=== PATIENT | female | born 1985 | race Caucasian/White ===

== ENCOUNTER → 2016-11-16 | Outpatient (CLI) | payer OTHER ==
[~2016-11-16] MED LIST: CALCTAB5 PO; CYAN10004 INJ; CYAN3INJ IM; DROS1TAB2 PO; DROS1TAB24 PO; ERGO1CAP41 PO; MULT-506 PO; OMEP20TA PO; PRLSR20 PO; TRAM-10 PO
[2016-11-16 16:39] LABS: BASO % 0.6 %; BASO ABS # 0.03 K/uL (0-0.2); COMPLETE YES; EOS % 1.9 %; HEMATOCRIT 35.5 % (37-47); IG% 0.2 %; LYMPH % 38.2 %; LYMPH ABS # 1.77 K/uL (1.2-3.4); MEAN CELL VOLUME 88.3 fL (80-100); MEAN CORPUSCULAR HEMOGLOBIN 30.1 pg (25-34); MEAN CORPUSCULAR HGB CONC 34.1 g/dl (32-36); MEAN PLATELET VOLUME 10.3 fL (7.4-10.4); NEUT % 53.1 %; PLATELET COUNT 313 K/uL (130-400); RED BLOOD COUNT 4.02 M/uL (4.2-5.4); WHITE BLOOD COUNT 4.63 K/uL (4.8-10.8)
[2016-11-16 17:42] LABS: BLOOD UREA NITROGEN 13 mg/dl (7-18); BUN/CREATININE RATIO 14.8 (10-20); CALCIUM 8.6 mg/dl (8.5-10.1); CARBON DIOXIDE 24 mmol/L (21-32); CHLORIDE 105 mmol/L (98-107); CREATININE 0.86 mg/dl (0.60-1.20); GLUCOSE 96 mg/dl (70-99); POTASSIUM 3.7 mmol/L (3.5-5.1); SODIUM 139 mmol/L (136-145)
[2016-11-16 17:45] LABS: FERRITIN 20.4 ng/ml (8.0-388.0)
== END | disposition home or self-care (01) ==
LOC: C.LAB 15:51
PROVIDERS: ATTEND Internal Medicine
DX: R79.0 Abnormal level of blood mineral (principal); E53.8 Deficiency of other specified B group vitamins; E55.9 Vitamin D deficiency, unspecified; K90.0 Celiac disease

== ENCOUNTER 2017-02-18 11:00 | Emergency (ER) | payer OTHER ==
[~2017-02-18] VITALS: Ht 165.1 cm; Wt 84.2 kg
[~2017-02-18 11:00] MED LIST changes: -CYAN10004 INJ; -DROS1TAB2 PO; -ERGO1CAP41 PO; -OMEP20TA PO; -TRAM-10 PO
[2017-02-18 11:03] VITALS: TEMP 37.7; Ht 165.1 cm; Wt 84.2 kg
[2017-02-18] MEDS ORDERED: CYAN10004 INJ (11:38)
[2017-02-18] MEDS ORDERED: ERGO500011 PO (11:38)
[2017-02-18] MEDS ORDERED: OMEP20TA PO (11:38)
[2017-02-18] MEDS ORDERED: DROS1TAB2 PO (11:38)
--- NOTE | 2017-02-18 12:14 | DIAGNOSTIC IMAGING REPORT ---
ULTRASOUND LEFT LOWER EXTREMITY VENOUS CLINICAL HISTORY: Left leg pain. COMPARISON STUDY: Bilateral lower extremity venous ultrasound dated 05/24/2011. TECHNIQUE: Real-time, grayscale, and color Doppler sonography of the deep veins of the left lower extremity was performed from the inguinal crease to the calf. Compression and augmentation were utilized. FINDINGS: There is no sonographic evidence of deep venous thrombosis identified in the left lower extremity. The common femoral, superficial femoral, and popliteal veins are patent and normally compressible. The greater saphenous vein and the profunda femoris vein at the junction with the common femoral vein are clear. The visualized calf veins are patent. IMPRESSION: There is no sonographic evidence of deep venous thrombosis identified in the left lower extremity. Electronically signed by: Joao Shine M.D. 02/18/2017 12:12 PM Dictated Date/Time: 02/18/2017 12:12 PM
--- NOTE | 2017-02-18 12:25 | DIAGNOSTIC IMAGING REPORT ---
LEFT KNEE 3 VIEWS CLINICAL HISTORY: Left knee pain. FINDINGS: AP, crosstable lateral, and sunrise views of left knee are obtained. No prior studies are available for comparison at the time of dictation. The skeletal structures are well mineralized. No fracture is seen. The joint spaces of the knee are preserved. There is no joint effusion. The overlying soft tissues are within normal limits. IMPRESSION: Unremarkable radiographic assessment of the left knee. Electronically signed by: Joao Shine M.D. 02/18/2017 12:24 PM Dictated Date/Time: 02/18/2017 12:23 PM
--- NOTE | 2017-02-18 12:40 | EMERGENCY ROOM VISIT NOTE ---
History First contact with patient: 11:11 Chief Complaint: LEG PAIN,LEG INJURY Stated Complaint: LEFT LEG-POSSIBLE BLOOD CLOT-SENT BY DR. LORENZ History of Present Illness The patient is a 31 year old female who presents to the Emergency Room via private vehicle with complaints of "leg pain possible blood clot, sent by Dr. Lorenz". The patient states that yesterday morning she woke up, and stepped out of bed and felt that her left leg felt weird, particularly at the left knee and left calf region. She feels as though the left knee has a brace on it. She states that she has kept it elevated and is taken ibuprofen with minimal relief. She also took Aleve before bedtime, which helped her pain. This morning she went to see her family doctor, who referred her here for an ultrasound secondary to concern of potential DVT. Patient denies any chance of , recent trauma, injury, falls. Patient denies any fevers, chills, chest pain, shortness of breath today. Review of Systems A complete 10-point Review of Systems was discussed with the patient, with pertinent positives and negatives listed in the History of Present Illness. All remaining Review of Systems questions can be considered negative unless otherwise specified. Past Medical/Surgical History Medical Problems: (1) Celiac Disease (2) Diaphragmatic Hernia (3) Reflux Esophagitis (4) Tricuspid Valve Disease Surgical Problems: (1) History of cholecystectomy Family History Diabetes, heart disease, high blood pressure, cancer, gallbladder disease, kidney disease or stones Social History Smoking Status: Never Smoker Alcohol Use: none Drug Use: none Marital Status: Occupation Status: employed Social History: Patient is currently employed and lives at home with and son Current/Historical Medications Scheduled Cyanocobalamin (Vitamin B-12 1000 Mcg), 1,000 MCG INJ MONTHLY Drospirenone-Ethinyl Estradiol (Loryna), 1 TAB PO DAILY Ergocalciferol (Vitamin D 06061 Unit), 1 TAB PO WK Multivitamin (Multivitamin), 1 TAB PO DAILY Omeprazole (Omeprazole), 1 TAB PO DAILY Allergies Coded Allergies: Gluten (Verified Adverse Reaction, Unknown, CELIAC DISEASE, 02/18/17) Physical Exam Vital Signs Date Time Temp Pulse Resp B/P Pulse Ox O2 Delivery O2 Flow Rate FiO2 02/18/17 12:44 60 18 143/87 99 Room Air 02/18/17 11:03 37.7 87 16 150/89 99 Room Air Physical Exam VITAL SIGNS - Vital signs and nursing notes were reviewed. Patient is afebrile , hypertensive at 150/89, non-tachycardic and is saturating well on room air 99% . GENERAL -31-year-old female appearing her stated age who is in no acute distress. Communicates well with provider and answers questions appropriately. SKIN - Without rashes. Skin overlying the left lower extremity is unremarkable. EXTREMITIES - No clubbing or peripheral cyanosis. No pretibial edema present. She is neurovascularly intact in the left lower extremity. Positive Homans sign. There is tenderness to palpation overlying the posterior superior aspect of the left calf and knee joint diffusely. Decreased range of motion secondary to pain in the knee. +5/5 strength noted in UE/LE bilaterally. Medical Decision & Procedures ER Provider Diagnostic Interpretation: LEFT KNEE 3 VIEWS CLINICAL HISTORY: Left knee pain. FINDINGS: AP, crosstable lateral, and sunrise views of left knee are obtained. No prior studies are available for comparison at the time of dictation. The skeletal structures are well mineralized. No fracture is seen. The joint spaces of the knee are preserved. There is no joint effusion. The overlying soft tissues are within normal limits. IMPRESSION: Unremarkable radiographic assessment of the left knee. Electronically signed by: Joao Shine M.D. 02/18/2017 12:24 PM Dictated Date/Time: 02/18/2017 12:23 PM ULTRASOUND LEFT LOWER EXTREMITY VENOUS CLINICAL HISTORY: Left leg pain. COMPARISON STUDY: Bilateral lower extremity venous ultrasound dated 05/24/2011. TECHNIQUE: Real-time, grayscale, and color Doppler sonography of the deep veins of the left lower extremity was performed from the inguinal crease to the calf. Compression and augmentation were utilized. FINDINGS: There is no sonographic evidence of deep venous thrombosis identified in the left lower extremity. The common femoral, superficial femoral, and popliteal veins are patent and normally compressible. The greater saphenous vein and the profunda femoris vein at the junction with the common femoral vein are clear. The visualized calf veins are patent. IMPRESSION: There is no sonographic evidence of deep venous thrombosis identified in the left lower extremity. Electronically signed by: Joao Shine M.D. 02/18/2017 12:12 PM Dictated Date/Time: 02/18/2017 12:12 PM Medical Decision Patient was seen and evaluated as above. After obtaining a thorough history and physical examination ultrasound was obtained, as well as radiograph of the affected extremity. The leg does not show any sign of infection, or superficial thrombophlebitis. Radiograph ultrasound results as above. No fracture or knee effusion seen. No evidence of septic joint. Clinically no evidence of emergent process. Ultrasound reveals no DVT. I suspect the patient may be experiencing either an soft tissue injury of the knee, or potentially an early process within the. We did discuss labs versus watch and wait, and it was decided to carefully watch the knee over time to resolution or return for worsening. I do believe this is reasonable. She notes that she has a knee brace at home and respectfully declined crutches. She is to follow-up regarding today's visit. She was educated upon worrisome symptoms which to return, had questions or discharge, and was discharged home in good condition. In the evaluation and treatment of this patient, the following differential diagnoses were considered: Patellar Fracture, Tibial Plateau Fracture, Distal Femur Fracture, ACL Injury, PCL Injury, Collateral Ligament Injury, Pes Anserine Bursitis, Maisonneuve Fracture. Impression Primary Impression: Leg pain, left Departure Information Dispostion Home / Self-Care Condition GOOD Referrals Pro,Cricket Marrero M.D. (PCP) Donald Mcnair M.D. Patient Instructions My [facility] Additional Instructions You have been treated in the Emergency Department for Knee Pain. For pain control, you can use the following juil-nno-reyzvxx medicines (if >12 yo): - Regular strength (325mg/tab) Tylenol (acetaminophen) 2 tabs every 4-6 hours as needed. Do not exceed 12 tablets in a 24 hour period. Avoid taking more than 3 grams (3000 mg) of Tylenol per day. This includes any other sources of acetaminophen you may take on a regular basis. - Regular strength (200 mg/tab) Advil (ibuprofen) 1-2 tabs every 4-6 hours as needed. Do not exceed a dose of 3200 mg per day. If this is a recent injury (<24 hrs), ice can be applied to the area of pain for the first 3 days to help decrease pain and inflammation. Ice massages can be performed by freezing water in a paper cup, peeling back the cup to expose the ice and then massaging over the affected area. You have been provided the number for an Orthopaedic Surgeon. You should call this number as soon as possible to establish a follow-up visit from today's Emergency Department visit. It is also recommended to follow-up with your family doctor. As we discussed there is no evidence of infection at this time, however if he would develop redness, increased warmth or swelling of the knee please return immediately. Keep the knee brace in place until cleared by Orthopedics. Please limit weightbearing of the knee. Return to the Emergency Department if your current symptoms worsen despite treatment course outlined above. Please return to the emergency department with any new/concerning symptoms.
[2017-02-18 12:44] VITALS: BP 143/87; PULSE 60; O2SAT 99
[2017-07-13] MEDS ORDERED: FAMO20TA12 PO (11:10)
[2017-07-13] MEDS ORDERED: BCPILLS PO (11:10)
[2017-07-13] MEDS ORDERED: ASPI-390 PO (11:10)
[2017-07-14] MEDS ORDERED: ONDA4TAB46 PO (10:15)
== END 2017-02-18 12:48 | disposition home or self-care (01) ==
LOC: C.EDB 11:03 → C.EDD 12:48
DX: M79.605 Pain in left leg (principal); K90.0 Celiac disease; K21.9 Gastro-esophageal reflux disease without esophagitis; Z79.899 Other long term (current) drug therapy; Z87.19 Personal history of other diseases of the digestive system; Z82.49 Family history of ischemic heart disease and other diseases of the circulatory system; Z83.79 Family history of other diseases of the digestive system; Z84.1 Family history of disorders of kidney and ureter

== ENCOUNTER → 2017-04-07 | Outpatient (CLI) | payer OTHER ==
[~2017-04-07] MED LIST changes: -CALCTAB5 PO; +CYAN10004 INJ; -CYAN3INJ IM; +DROS1TAB2 PO; -DROS1TAB24 PO; +ERGO1CAP41 PO; +OMEP20TA PO; -PRLSR20 PO
== END | disposition home or self-care (01) ==
LOC: C.LAB 15:18
PROVIDERS: ATTEND Internal Medicine
DX: E55.9 Vitamin D deficiency, unspecified (principal); E53.8 Deficiency of other specified B group vitamins

== ENCOUNTER 2017-06-20 08:45 | Emergency (ER) | payer OTHER ==
[~2017-06-20] VITALS: Ht 165.1 cm; Wt 84.5 kg
[2017-06-20 08:54] VITALS: TEMP 37.3; Ht 165.1 cm; Wt 84.5 kg
--- NOTE | 2017-06-20 08:58 | EMERGENCY ROOM VISIT NOTE ---
ED Visit Note First contact with patient: 08:48 CHIEF COMPLAINT: Finger injury HISTORY OF PRESENT ILLNESS: This 31-year-old female patient presents to the emergency department ambulatory after injuring the left second finger when she closed it in the sliding glass door at home just prior to arrival. There was no audible snap or crack at that time. She states the finger is numb distal to the injury. The patient is not able to straighten or flex the finger well and it is painful. No numbness or tingling. There are 2 superficial lacerations one to the dorsal aspect and one to the lateral aspect of the finger. They do not gape significantly. There is no significant bleeding. No other injuries. The patient has not had previous injury to this finger. The patient has taken nothing for the pain. REVIEW OF SYSTEMS: A 6 system review of systems was completed with positives and pertinent negatives in the HPI. ALLERGIES: Gluten MEDICATIONS: control pills, Prilosec PMH: GERD, celiac disease SOCIAL HISTORY: The patient lives locally. She is employed. PHYSICAL EXAM: Vital Signs: Reviewed Nurse's notes, vital signs stable. GENERAL : This is 31-year-old female, in no acute distress, but appears to be in pain, well-developed, well-nourished. MUSCULOSKELETAL: There is no deformity of the left second finger. The patient is not able to extend or flex it well because of the pain. The DIP joint is maximally tender and extension and flexion is painful. The PIP joint is nontender. There is no ligamentous instability. There are 2 small lacerations one to the dorsal aspect onto the lateral aspect. They do not significantly gape. There is no significant bleeding.. Capillary refill less than 2 seconds. No tenderness of the remaining fingers or hand. Full range of motion of the wrist. NEURO: Alert and oriented to person, place, and time. Normal sensation to light and sharp touch. EMERGENCY DEPARTMENT COURSE: I examined the patient. An x-ray of the finger was reviewed by myself and radiology and showed no fracture, foreign body or dislocation. 2 very small, superficial, flap-like lacerations that measured approximately 1 cm in total length were repaired. Using sterile technique the wound was cleaned with Betadine. The area was sterilely draped. 6 ml of 1% buffered lidocaine was used to anesthetize the finger the a digital block. Once the patient was numb, the wound was copiously irrigated under pressure with sterile saline. The wound was explored and there were no deep structures such as tendons, bone, or ligaments present. The laceration was repaired using 6 simple interrupted 5-0 nylon sutures with the wound edges being well approximated. The patient tolerated the procedure well. The bleeding stopped. The area was cleaned with sterile saline and dressed with bacitracin ointment and bandage. The patient was discharged home in good condition. The patient was placed in a splint as her finger is still numb. She was advised to follow-up with orthopedics if any numbness persists after a week. The sutures should be removed in 7-10 days. She will be able to wash her hands but should keep the wounds covered and gloves in place when she is working and particularly in the operating room. She should return with any worsening symptoms. LEFT INDEX FINGER 3 VIEWS HISTORY: left second finger closed in door, pain COMPARISON: None. FINDINGS: There is no fracture or dislocation. Mild soft tissue swelling. No radiopaque foreign bodies. IMPRESSION: No fractures. Problem List Surgical Problems: (1) History of cholecystectomy Status: Resolved Current/Historical Medications Scheduled Cyanocobalamin (Vitamin B-12 1000 Mcg), 1,000 MCG INJ MONTHLY Drospirenone-Ethinyl Estradiol (Loryna), 1 TAB PO DAILY Ergocalciferol (Vitamin D 58130 Unit), 1 TAB PO WK Omeprazole (Omeprazole), 20 MG PO DAILY Allergies Coded Allergies: Gluten (Verified Adverse Reaction, Unknown, CELIAC DISEASE, 06/20/17) Vital Signs Date Time Temp Pulse Resp B/P (MAP) Pulse Ox O2 Delivery O2 Flow Rate FiO2 06/20/17 10:42 88 16 147/88 99 06/20/17 09:53 92 16 147/104 98 Room Air 06/20/17 08:54 37.3 93 16 168/110 97 Room Air Medications Administered Medications (Trade) Dose Ordered Sig/Nathalie Route Start Time Stop Time Status Last Admin Dose Admin Lidocaine HCl (Buffered Lidocaine 1% Inj) 20 ml NOW ONCE INFIL 06/20/17 09:30 06/20/17 09:31 DC 06/20/17 10:03 20 ML Departure Information Impression Primary Impression: Finger laceration Additional Impression: Finger contusion Dispostion Home / Self-Care Condition GOOD Referrals Pro,Cricket Marrero M.D. (PCP) Forms HOME CARE DOCUMENTATION FORM, IMPORTANT VISIT INFORMATION, WORK / SCHOOL INSTRUCTIONS Patient Instructions ED Contusion Finger, My [facility] Additional Instructions Keep wound clean and dry. Do not allow any crusting or dried blood to accumulate on sutures. If this occurs, use a 1:1 solution of hydrogen peroxide/ water on a Q-tip to clean the wound. Use an antibiotic ointment for 3-4 days, then let wound dry. Suture removal in 7-10 days. Return sooner for any signs of infection (increasing redness, swelling, drainage). Ice and elevate for swelling and pain. Ibuprofen 600 mg every 6 hrs for pain. Keep covered when in sun until sutures removed then SPF 50 or higher for one year. Vitamin E oil if desired two weeks after suture removal for reduction of scar. Wear the splint while the finger is numb Follow up with your family doctor or orthopedics if pain and/or numbness persist in 5-7 days Work Instructions Additional Work Instructions: Must wear splint on left index finger 06/20/17. Must keep wound covered 7-10 days Problem Qualifiers Primary Impression: Finger laceration Encounter type: initial encounter Finger: index finger Damage to nail status: without damage Foreign body presence: without foreign body Laterality: right Qualified Codes: S61.210A - Laceration without foreign body of right index finger without damage to nail, initial encounter Additional Impression: Finger contusion Encounter type: initial encounter Finger: index finger Damage to nail status: without damage Laterality: right Qualified Codes: S60.021A - Contusion of right index finger without damage to nail, initial encounter
--- NOTE | 2017-06-20 09:19 | DIAGNOSTIC IMAGING REPORT ---
LEFT INDEX FINGER 3 VIEWS HISTORY: left second finger closed in door, pain COMPARISON: None. FINDINGS: There is no fracture or dislocation. Mild soft tissue swelling. No radiopaque foreign bodies. IMPRESSION: No fractures. Electronically signed by: Raudel Potter M.D. 06/20/2017 9:17 AM Dictated Date/Time: 06/20/2017 9:16 AM
[2017-06-20] MEDS ORDERED: XYLOCAINE 1%/SOD BICARB 20 ML VIAL INFIL ONE (09:30)
[2017-06-20 10:42] VITALS: BP 147/88; PULSE 88; O2SAT 99
== END 2017-06-20 10:44 | disposition home or self-care (01) ==
LOC: C.EDB 08:47 → C.EDA 10:44
DX: S61.210A Laceration without foreign body of right index finger without damage to nail, initial encounter (principal); W23.0XXA Caught, crushed, jammed, or pinched between moving objects, initial encounter; Z79.3 Long term (current) use of hormonal contraceptives; Z79.899 Other long term (current) drug therapy; K21.9 Gastro-esophageal reflux disease without esophagitis; K90.0 Celiac disease; Z90.49 Acquired absence of other specified parts of digestive tract

== ENCOUNTER → 2017-07-12 | Outpatient (CLI) | payer OTHER ==
[~2017-07-12] MED LIST changes: +ASPI-390 PO; +BCPILLS PO; +FAMO20TA12 PO; -MULT-506 PO; +ONDA4TAB46 PO
[2017-07-12 09:43] LABS: BASO % 0.9 %; BASO ABS # 0.04 K/uL (0-0.2); COMPLETE YES; EOS % 1.1 %; HEMATOCRIT 37.5 % (37-47); LYMPH % 25.1 %; MEAN CELL VOLUME 89.9 fL (80-100); MEAN CORPUSCULAR HEMOGLOBIN 30.5 pg (25-34); MEAN CORPUSCULAR HGB CONC 33.9 g/dl (32-36); MEAN PLATELET VOLUME 10.1 fL (7.4-10.4); MONO % 5.7 %; NEUT % 67.2 %; PLATELET COUNT 253 K/uL (130-400); RED BLOOD COUNT 4.17 M/uL (4.2-5.4); WHITE BLOOD COUNT 4.39 K/uL (4.8-10.8)
[2017-07-12 09:59] LABS: ALT/SGPT 14 U/L (12-78); AST/SGOT 8 U/L (15-37); BLOOD UREA NITROGEN 14 mg/dl (7-18); BUN/CREATININE RATIO 15.8 (10-20); CALCIUM 8.5 mg/dl (8.5-10.1); CARBON DIOXIDE 23 mmol/L (21-32); CHLORIDE 108 mmol/L (98-107); CREATININE 0.86 mg/dl (0.60-1.20); GLUCOSE 91 mg/dl (70-99); POTASSIUM 3.6 mmol/L (3.5-5.1); SODIUM 139 mmol/L (136-145)
[2017-07-12 10:03] LABS: ALKALINE PHOSPHATASE 38 U/L (45-117); C-REACTIVE PROTEIN 0.41 mg/dl (0-0.29)
== END | disposition home or self-care (01) ==
LOC: C.LAB 08:38
PROVIDERS: ATTEND Registered Nurse
DX: R11.2 Nausea with vomiting, unspecified (principal)

== ENCOUNTER → 2017-07-14 | Day surgery (SDC) | payer OTHER ==
[2017-07-13 11:11] VITALS: BMI 31.0
[~2017-07-14] VITALS: Ht 165.1 cm; Wt 85.5 kg
[~2017-07-14] MED LIST changes: +DEXAMETHASONE SOD INJ 4 MG/ML VIAL ONE; -DROS1TAB2 PO; -ERGO1CAP41 PO; +LIDOCAINE HCL 2% 2 ML VIAL (20MG/ML) ONE; +METOCLOPRAMIDE HCL INJ 5 MG/ML 2 ML VIAL ONE; +MIDAZOLAM HCL 1 MG/ML 2ML VIAL ONE; +ONDANSETRON INJ 2 MG/ML 2 ML VIAL ONE; +PROPOFOL IV EMULSION 10 MG/ML 20 ML VIAL IV ONE; +SODIUM CHLORIDE 0.9% 500ML 500 ML IV ONE
[2017-07-14 10:16] VITALS: Ht 165.1 cm; Wt 85.5 kg
--- NOTE | 2017-07-14 10:57 | Endo History and Physical ---
History & Physical Date of Service: Jul 14, 2017. Chief Complaint: NAUSEA, CHRONIC DIARRHEA Referring Physician: DR ARCOS History of Present Illness 31 yo CF who presents for colonoscopy secondary to chronic diarrhea and abnormal CT Scan. Past Surgical History Hx Cardiac Surgery: No Hx Internal Defibrillator: No Hx Pacemaker: No Hx Abdominal Surgery: Yes (LAP PAN) Hx of Implantable Prosthesis: No Hx Post-Op Nausea and Vomiting: Yes Hx Cancer Surgery: No Hx Thoracic Surgery: No Hx Orthopedic: Yes (LT HAND HEMANGIOMA AND ANEURYSM REMOVAL) Hx Urinary Tract Surgery: No Family History None Social History Smoking Status: Never Smoker Hx Substance Use: No Hx Alcohol Use: Yes (OCCASIONAL) Allergies Coded Allergies: NO KNOWN DRUG ALLERGIES (Verified Allergy, Unknown, ., 07/13/17) Gluten (Verified Adverse Reaction, Unknown, CELIAC DISEASE, 07/13/17) Current Medications Reported Home Medications Medications Dose Route/Sig Max Daily Dose Days Date Category Zofran (Ondansetron HCl) 4 Mg Tab 4 Mg PO 07/14/17 Reported Control Pills (Miscellaneous) Tab 1 Tab PO QPM 07/13/17 Reported Excedrin Migraine (Bnlhzbu-Jgonlkpmdguil-Sygsieus) 1 Tab Tab 1 Tab PO UD PRN 07/13/17 Reported Famotidine 20 Mg Tab 1 Tab PO HS PRN 07/13/17 Reported Vitamin B-12 1000 Mcg (Cyanocobalamin) 1,000 Mcg Tab 1,000 Mcg INJ MONTHLY 02/18/17 Reported Omeprazole 20 Mg Tab 20 Mg PO QAM 02/18/17 Reported Vital Signs Weight (Kilograms): 85.45 Height (Feet): 5 Height (Inches): 5 Date Time Temp Pulse Resp B/P (MAP) Pulse Ox O2 Delivery O2 Flow Rate FiO2 07/14/17 10:21 37.0 95 16 141/90 (107) 99 Room Air Physical Exam General Appearance: WD/WN, no apparent distress Respiratory/Chest: Auscultation: breath sounds normal Cardiovascular: Heart Auscultation: RRR Abdomen: Bowel Sounds: normal Inspection & Palpation: soft, non-distended, no tenderness, guarding & rebound Assessment and Plan Assessment: 31 yo CF who presents for colonoscopy secondary to chronic diarrhea and abnormal CT Scan. Plan: Proceed with colonoscopy.
--- NOTE | 2017-07-14 11:34 | Discharge Instructions ---
Endoscopy Patient Instructions Date / Procedure(s) Performed Jul 14, 2017. Colonoscopy Allergy Information Coded Allergies: NO KNOWN DRUG ALLERGIES (Verified Allergy, Unknown, ., 07/13/17) Gluten (Verified Adverse Reaction, Unknown, CELIAC DISEASE, 07/13/17) Discharge Date / Findings Jul 14, 2017. Random colon biopsies Stool aspirate collected Internal hemorrhoids Medication Instructions OK to resume all medications today as prescribed Reported Home Medications Medications Dose Route/Sig Max Daily Dose Days Date Category Zofran (Ondansetron HCl) 4 Mg Tab 4 Mg PO 07/14/17 Reported Control Pills (Miscellaneous) Tab 1 Tab PO QPM 07/13/17 Reported Excedrin Migraine (Tofukfo-Bjbkkszbmqtwr-Zwmgfuom) 1 Tab Tab 1 Tab PO UD PRN 07/13/17 Reported Famotidine 20 Mg Tab 1 Tab PO HS PRN 07/13/17 Reported Vitamin B-12 1000 Mcg (Cyanocobalamin) 1,000 Mcg Tab 1,000 Mcg INJ MONTHLY 02/18/17 Reported Omeprazole 20 Mg Tab 20 Mg PO QAM 02/18/17 Reported Provider Instructions Activity Restrictions - No exercising or heavy lifting for 24 hours. - Do not drink alcohol the day of the procedure. - Do not drive a car or operate machinery until the day after the procedure. - Do not make any important decisions or sign important papers in 24 hours after the procedure. Following Day: - Return to full activity which may include returning to work/school. Diet Start your diet with liquids and light foods (jello, soup, juice, toast). Then eat your usual diet if not nauseated. Treatment For Common After Affects For mild abdominal pain, bloating, or excessive gas: - Rest - Eat lightly - Lie on right side Follow-Up Information Follow-up with DR ARCOS as scheduled Anesthesia Information What You Should Know You have had a procedure that required some medicine to reduce anxiety and discomfort. This treatment is called moderate sedation. After receiving the treatment, you may be sleepy, but you will be able to breathe on your own. The effects of the treatment may last for several hours. Follow these instructions along with Activity/Diet recommendations noted above: * Do NOT do anything where dizziness or clumsiness would be dangerous. * Rest quietly at home today, then you can be up and about tomorrow. * Have a responsible person stay with you the rest of today. * You may have had an I.V. today. If so, you may take the dressing off later today. Recommendations Call your doctor if: * Trouble breathing * Continuous vomiting for more than 24 hours * Temperature above 101 degrees * Severe abdominal pain or bloating * Pain not relieved by pain medicine ordered * There is increased drainage or redness from any incision * A large amount of rectal bleeding greater than 2-3 tablespoons. (If you had a polyp/s removed or have hemorrhoids, a small amount of blood - from the rectum is to be expected.) * You have any unanswered questions or concerns. IN THE EVENT OF A SERIOUS EMERGENCY, GO TO THE NEAREST EMERGENCY ROOM Your discharge instructions were prepared by provider Rajan Farah. Patient Instructions Signature Page Brenna Hamilton Patient (or Guardian) Signature/Date: I have read and understand the instructions given to me by my caregivers. Caregiver/RN/Doctor Signature/Date: The above-named patient and/or guardian has received patient instructions on this date. + Original Patient Signature Page (only) stays with chart. Please make copy for patient.
--- NOTE | 2017-07-14 11:38 | GI REPORT ---
Procedure Date: 07/14/2017 10:59 AM Procedure: Colonoscopy Indications: Chronic diarrhea, Abnormal CT of the GI tract Medicines: Monitored Anesthesia Care Complications: No immediate complications. Estimated Blood Loss: Estimated blood loss: none. Procedure: Pre-Anesthesia Assessment: - Prior to the procedure, a History and Physical was performed, and patient medications and allergies were reviewed. The patient's tolerance of previous anesthesia was also reviewed. The risks and benefits of the procedure and the sedation options and risks were discussed with the patient. All questions were answered, and informed consent was obtained. Prior Anticoagulants: The patient has taken no previous anticoagulant or antiplatelet agents. ASA Grade Assessment: II - A patient with mild systemic disease. After reviewing the risks and benefits, the patient was deemed in satisfactory condition to undergo the procedure. After I obtained informed consent, the scope was passed under direct vision. Throughout the procedure, the patient's blood pressure, pulse, and oxygen saturations were monitored continuously. The scope was introduced through the anus and advanced to the terminal ileum. The colonoscopy was performed without difficulty. The patient tolerated the procedure well. The quality of the bowel preparation was good. The terminal ileum, ileocecal valve, appendiceal orifice, and rectum were photographed. Findings: The perianal and digital rectal examinations were normal. Non-bleeding internal hemorrhoids were found during retroflexion. The hemorrhoids were small. Several random biopsies were obtained with cold forceps for histology in the entire colon. Fluid aspiration for cytology was performed in the entire colon. Impression: - Non-bleeding internal hemorrhoids. - Several random biopsies were obtained in the entire colon. - Fluid aspiration was performed. Recommendation: - Resume previous diet. - Continue present medications. - Repeat colonoscopy for surveillance based on pathology results. - Return to primary care physician as previously scheduled. Rajan Farah DO 07/14/2017 11:37:39 AM This report has been signed electronically. Note Initiated On: 07/14/2017 10:59 AM I attest to the content of the Intraoperative Record and orders documented therein, exceptions below
[2017-07-14 12:02] VITALS: BP 139/81; PULSE 75; O2SAT 100
--- NOTE | 2017-07-14 12:16 | Anesthesiology Progress Note ---
Anesthesia Post Op Note Date & Time Jul 14, 2017 at 12:15 Vital Signs Pain Intensity: 0 Vital Signs Past 12 Hours Date Time Temp Pulse Resp B/P (MAP) Pulse Ox O2 Delivery O2 Flow Rate FiO2 07/14/17 12:02 75 20 139/81 (100) 100 Room Air 07/14/17 11:47 85 20 130/86 (101) 99 Room Air 07/14/17 11:32 105 20 113/97 (102) 99 Room Air 07/14/17 10:21 37.0 95 16 141/90 (107) 99 Room Air Notes Mental Status: alert / awake / arousable, participated in evaluation Pt Amnestic to Procedure: Yes Nausea / Vomiting: adequately controlled Pain: adequately controlled Airway Patency, RR, SpO2: stable & adequate BP & HR: stable & adequate Hydration State: stable & adequate Anesthetic Complications: no major complications apparent
== END | disposition home or self-care (01) ==
LOC: C.GI 10:01
PROVIDERS: ATTEND Internal Medicine
DX: K52.9 Noninfective gastroenteritis and colitis, unspecified (principal); R93.3 Abnormal findings on diagnostic imaging of other parts of digestive tract; K64.8 Other hemorrhoids; Z90.49 Acquired absence of other specified parts of digestive tract; Z98.890 Other specified postprocedural states; Z79.3 Long term (current) use of hormonal contraceptives; Z68.31 Body mass index [BMI] 31.0-31.9, adult

== ENCOUNTER → 2017-07-17 | Outpatient (CLI) | payer OTHER ==
[~2017-07-17] MED LIST changes: -DEXAMETHASONE SOD INJ 4 MG/ML VIAL ONE; -LIDOCAINE HCL 2% 2 ML VIAL (20MG/ML) ONE; -METOCLOPRAMIDE HCL INJ 5 MG/ML 2 ML VIAL ONE; -MIDAZOLAM HCL 1 MG/ML 2ML VIAL ONE; -ONDANSETRON INJ 2 MG/ML 2 ML VIAL ONE; -PROPOFOL IV EMULSION 10 MG/ML 20 ML VIAL IV ONE; -SODIUM CHLORIDE 0.9% 500ML 500 ML IV ONE
[2017-07-17 17:08] LABS: ALKALINE PHOSPHATASE 37 U/L (45-117); ALT/SGPT 16 U/L (12-78); AMYLASE 96 U/L (25-115); AST/SGOT 8 U/L (15-37)
== END | disposition home or self-care (01) ==
LOC: C.LAB 15:33
PROVIDERS: ATTEND Registered Nurse
DX: R74.8 Abnormal levels of other serum enzymes (principal)

== ENCOUNTER → 2017-08-09 | Outpatient (CLI) | payer OTHER ==
--- NOTE | 2017-08-09 13:29 | DIAGNOSTIC IMAGING REPORT ---
GASTRIC EMPTYING CLINICAL HISTORY: 32 years-old Female presenting with K21.9 Acid reflux [id number] Nausea with vomiting. TECHNIQUE: Following the oral administration of 1 mCi of technetium 99m sulfur colloid in egg and 8 ounces of water, static abdominal images are obtained anteriorly and posteriorly at 0 minutes, 1 hour, 2 hour, and 4 hour time intervals. Gastric emptying was calculated utilizing the geometric mean method. COMPARISON: CT from 07/13/2017. FINDINGS: There is approximately 70% activity remaining at the 1 hour time interval, 47% remaining at the 2 hour time interval (normal is less than 60%), and 0% activity remaining at the 4 hour time interval (normal is less than 10%). IMPRESSION: Findings are consistent with normal gastric emptying. Electronically signed by: Truman Porter M.D. 08/09/2017 1:28 PM Dictated Date/Time: 08/09/2017 1:26 PM
== END | disposition home or self-care (01) ==
LOC: C.NUCL 08:11
PROVIDERS: ATTEND Registered Nurse
DX: K21.9 Gastro-esophageal reflux disease without esophagitis (principal); R11.2 Nausea with vomiting, unspecified; R14.0 Abdominal distension (gaseous)

== ENCOUNTER → 2017-10-17 | Outpatient (CLI) | payer OTHER | END | disposition home or self-care (01) | LOC: C.LAB 16:35 | PROVIDERS: ATTEND Internal Medicine | DX: E53.8 Deficiency of other specified B group vitamins (principal); R53.83 Other fatigue ==

== ENCOUNTER → 2017-12-13 | Outpatient (CLI) | payer OTHER | END | disposition home or self-care (01) | LOC: C.PAPS 17:54 | PROVIDERS: ATTEND Obstetrics & Gynecology | DX: Z12.4 Encounter for screening for malignant neoplasm of cervix (principal); Z11.51 Encounter for screening for human papillomavirus (HPV) ==